=== PATIENT | male | born 1990 | race African-American/Black ===

== ENCOUNTER 2024-03-08 11:12 | Emergency (ER) | payer MEDICAID, SELFPAY ==
--- NOTE | ~2024-03-08 | XR_ITS ---
EXAMINATION: XR CHEST 2 VIEWS CLINICAL INFORMATION: Cough. COMPARISON: None. TECHNIQUE: Frontal and lateral views of the chest were obtained. FINDINGS: The heart, great vessels, pulmonary vasculature and mediastinum are normal. The lungs show no focal infiltrate, effusion or pneumothorax. There is no acute osseous abnormality. XR/XR chest 2V IMPRESSION: No active cardiopulmonary disease. Electronically signed by: Félix Chowdhury MD 03/08/2024 02:08 PM [facility]
[2024-03-08 11:32] VITALS: BP 132/78; PULSE 94; RESP 18; TEMP 37.5; O2SAT 96; BMI 35.6
--- NOTE | 2024-03-08 11:32 | ED_ITS ---
HPI - Nausea/Vomiting/Diarrhea General Chief complaint: Nausea/Vomiting/Diarrhea Stated complaint: n/v/d, muscle spasm Time Seen by Provider: 03/08/24 17:47 Source: patient Limitations: no limitations History of Present Illness ED Provider: Melida Otero PA-C HPI Narrative: 33-year-old otherwise healthy male presents with nausea vomiting diarrhea x3 days. Patient's children are sick at home with same symptoms. Associated abdominal cramping. Denies fever or cough cold symptoms. Associated nausea: Yes Related Data Previous Rx's ?Medication ?Instructions ?Recorded dicyclomine 20 mg tablet 20 mg PO BID PRN abdominal pain #7 03/08/24 tabs ondansetron 4 mg disintegrating 4 mg PO Q8H PRN nausea and 03/08/24 tablet vomiting #10 tabs Allergies Allergy/AdvReac Type Severity Reaction Status Date / Time No Known Allergies Allergy Verified 03/08/24 11:36 Review of Systems 2 Review of Systems: Yes all other systems are reviewed and are negative Constitutional: Constitutional: Denies fatigue and Denies fever(s) Cardiovascular: Cardiovascular: Denies chest pain and Denies dyspnea Respiratory: Respiratory: Denies cough and Denies dyspnea Gastrointestinal: Gastrointestinal: Reports diarrhea, Reports nausea and Reports vomiting Endocrine: Endocrine: Denies fatigue PMFSH Past Medical History Attestation statement: The following information was validated with the patient. Social History Social History Smoked in Last 30 Days: No Substance Use Type: Marijuana Substance Use Frequency: Socially Advance Directives: No Advance Directives Information Provided: No Physical Exam 2 Vital Signs: Vital Signs: Last Vital Signs Temp 98.3 F 03/08/24 18:40 Pulse 87 03/08/24 18:40 Resp 16 03/08/24 18:40 BP 119/69 03/08/24 18:40 Pulse Ox 97 03/08/24 18:40 O2 Del Method Room Air 03/08/24 18:40 BMI result Body Mass Index 35.6 Const: Other: Alert, well-appearing Orientation/consciousness: patient oriented x3 Resp: Other: Nonlabored respirations Cardio: Other: Normal peripheral perfusion GI: Other: Abdomen is soft, nondistended nontender Skin: Other: Warm dry no rash Neuro: General: patient oriented x3, no focal motor deficits and CN's II-XI intact bilaterally Psych: Other: Calm cooperative Course Course Course Narrative: This is an RME: Additional HPI, ROS, PE not included below will be deferred to primary provider. RME assessment and note performed by: Maida Dalton PA-C This is a 58-jwum-key-male, with no known medical problems, who presents to the ER with complaints of nausea, vomiting, diarrhea, headaches, x 1 day. Reports that he has had a cough for the last 3 days. Also endorses left sided chest tightness with coughing and sneezing. Endorses sick contacts. Plan: Labs, Viral swabs, EKG, cxr, further ER eval needed. Medications Administered Discontinued Medications Generic Name Dose Route Start Last Admin Trade Name Freq PRN Reason Stop Dose Admin Dicyclomine HCl 20 mg 03/08/24 17:48 03/08/24 18:08 Dicyclomine Hcl 10 Mg Capsule PO 03/08/24 17:49 20 mg ONCE ONE Administration Sodium Chloride 1,000 mls @ 999 mls/hr 03/08/24 18:00 03/08/24 18:17 Ns IV 03/08/24 19:00 999 mls/hr .Q1H1M JOE Administration Ketorolac Tromethamine 15 mg 03/08/24 18:25 03/08/24 18:41 Ketorolac Tromethamine 15 Mg/Ml Vial IVPUSH 03/08/24 18:26 15 mg ONCE ONE Administration Ondansetron HCl 4 mg 03/08/24 17:48 03/08/24 18:16 Ondansetron Hcl 4 Mg/2 Ml Vial IVPUSH 03/08/24 17:49 4 mg ONCE ONE Administration Medical Decision Making Medical Decision Making MDM Narrative: 33-year-old otherwise healthy male presents with nausea vomiting diarrhea x3 days. Patient's children are sick at home with same symptoms. Associated abdominal cramping. Denies fever or cough cold symptoms. No relevant chronic issues History: Per patient I have considered the following differential diagnoses: Viral gastroenteritis, diverticulitis, traveler's diarrhea, C diff Plan: Patient has viral gastroenteritis, his children are sick with same symptoms. We will give symptomatic care, IV fluid dicyclomine and Zofran. No recent travel this is not traveler's diarrhea, he has no risk factors for C diff. thought about diverticulitis, however there was no focal left lower quadrant discomfort on exam, imaging not warranted. Screening labs were already obtained from triage I have independently reviewed the following tests: Labs: No leukocytosis, not anemic, no electrolyte abnormality, viral panel negative Lab Data 03/08/24 11:49 03/08/24 11:49 Labs: Lab Results 03/08/24 03/08/24 Range/Units 11:49 19:32 WBC 8.1 (4.8-10.8) X10*3/uL RBC 5.23 (4.60-5.80) X10*6/uL Hgb 16.1 (14.0-18.0) g/dl Hct 45.7 (42.0-52.0) % MCV 87.4 (80.0-98.0) fL MCH 30.8 (27.0-33.0) pg MCHC 35.2 (31.0-36.0) g/dl RDW 13.4 (11.0-16.0) % Plt Count 219 (160-400) X10*3/uL MPV 9.2 L (9.4-12.4) fL Immature Gran % (Auto) 0.2 (0.0-0.4) % Neut % (Auto) 75.9 H (45-73) % Lymph % (Auto) 12.6 L (20-40) % [place] % (Auto) 8.1 (2-11) % Eos % (Auto) 2.8 (0-4) % Baso % (Auto) 0.4 (0-2) % Lymph # (Auto) 1.0 L (1.2-4.9) X10*3/uL [place] # (Auto) 0.7 (0.1-1.2) X10*3/uL Eos # (Auto) 0.2 (0.0-0.4) X10*3/uL Baso # (Auto) 0.0 (0.0-0.2) X10*3/uL Abs Immat Gran (auto) 0.02 (0.00-0.03) X10*3/uL Absolute Neuts (auto) 6.1 (2.0-8.3) x10*3/uL Absolute Nucleated RBC 0.000 (0.0-0.012) X10*3/uL Nucleated RBC % (auto) 0.0 (0.0-0.2) /100WBC Sodium 139 (135-145) mmol/L Potassium 4.1 (3.3-5.1) mmol/L Chloride 106 (96-108) mmol/L Carbon Dioxide 21 L (22-29) mmol/L Anion Gap 16 (12-20) BUN 8 L (9-16) mg/dL Creatinine 0.85 (0.5-1.4) mg/dL Estim Creat Clear Calc 138.8 Estimated GFR > 60 Random Glucose 91 (60-115) mg/dL Calcium 9.7 (8.4-10.2) mg/dL Magnesium 1.8 (1.6-2.6) mg/dL Total Bilirubin 0.5 (0.0-1.0) mg/dL AST 39 H (5-37) U/L ALT 43 H (0-40) U/L Alkaline Phosphatase 76 (39-117) U/L Troponin I High Sens < 2.7 (<3.5-35.0) ng/L Total Protein 7.7 (6.5-8.0) g/dL Albumin 4.3 (3.5-5.0) g/dL Lipase 11 (8-78) U/L Urine Color Yellow Urine Appearance Clear Urine pH 7.0 (5.0-9.0) Ur Specific [place] 1.015 (1.005-1.025) Urine Protein Trace (Neg-Trace) mg/dL Urine Glucose (UA) Negative (Negative) mg/dL Urine Ketones Negative (Negative) mg/dL Urine Blood Trace H (Negative) Urine Nitrite Negative (Negative) Ur Leukocyte Esterase Negative (Negative) Urine RBC 3-5 H (0-2) /HPF Urine WBC 0-5 (0-5) /HPF Ur Squamous Epith Cells 0-2 (0-2) /HPF Urine Bacteria None Seen (None Seen) Hyaline Casts 0-2 (0-2) /LPF Influenza Type A (PCR) NEGATIVE (Negative) Influenza Type B (PCR) NEGATIVE (Negative) RSV RNA Qual (PCR) NEGATIVE (Negative) SARS-CoV-2 RNA (RT-PCR) NEGATIVE (Negative) Discharge Plan Discharge Clinical Impression: Gastroenteritis Patient Disposition: Home, Self-Care Instructions: Gastroenteritis (ED) Additional Instructions: All of your screening labs were normal. You have viral gastroenteritis. See home care instructions. This illness is self-limiting. Uses Zofran as needed for nausea, use the dicyclomine as needed for abdominal cramping or diarrhea. Follow up with your primary care provider as needed. Prescriptions: New ondansetron 4 mg tablet,disintegrating 4 mg PO Q8H PRN (Reason: nausea and vomiting) Qty: 10 0RF dicyclomine 20 mg tablet 20 mg PO BID PRN (Reason: abdominal pain) Qty: 7 0RF Stand Alone Forms: Work/School Release Print Language: Armenian
--- NOTE | 2024-03-08 11:36 | ECG_ITS ---
Test Reason : CP Blood Pressure : / mmHG Vent. Rate : 094 BPM Atrial Rate : 094 BPM P-R Int : 132 ms QRS Dur : 080 ms QT Int : 326 ms P-R-T Axes : 023 024 011 degrees QTc Int : 407 ms Normal sinus rhythm Normal ECG No previous ECGs available Referred By: Maida Dalton Electronically Signed By:Kris Dominguez
[2024-03-08 11:59] LABS: MANUAL DIFF FLAG NO
[2024-03-08 12:01] LABS: Basophils Percent Auto 0.4 % (0-2); Eosinophils Absolute Auto 0.2 X10*3/uL (0.0-0.4); Eosinophils Percent Auto 2.8 % (0-4); Hematocrit 45.7 % (42.0-52.0); Hemoglobin 16.1 g/dl (14.0-18.0); Imm Gran Abs Auto 0.02 X10*3/uL (0.00-0.03); Imm Gran Pct Auto 0.2 % (0.0-0.4); Lymphocytes Percent Auto 12.6 % (20-40); Mean Corpuscular HGB Conc 35.2 g/dl (31.0-36.0); Mean Corpuscular Hemoglobin 30.8 pg (27.0-33.0); Mean Corpuscular Volume 87.4 fL (80.0-98.0); Mean Platelet Volume 9.2 fL (9.4-12.4); Monocytes Absolute Auto 0.7 X10*3/uL (0.1-1.2); Monocytes Percent Auto 8.1 % (2-11); Neutrophils Absolute Auto 6.1 x10*3/uL (2.0-8.3); Neutrophils Percent Auto 75.9 % (45-73); Platelet Count 219 X10*3/uL (160-400); Red Blood Count 5.23 X10*6/uL (4.60-5.80); Red Cell Distribution Width 13.4 % (11.0-16.0); White Blood Count 8.1 X10*3/uL (4.8-10.8)
[2024-03-08 12:35] LABS: Alanine Aminotransferase 43 U/L (0-40); Albumin Level 4.3 g/dL (3.5-5.0); Anion Gap 16 (12-20); Aspartate Amino Transferase 39 U/L (5-37); Bilirubin Total 0.5 mg/dL (0.0-1.0); Blood Urea Nitrogen 8 mg/dL (9-16); Calcium 9.7 mg/dL (8.4-10.2); Carbon Dioxide 21 mmol/L (22-29); Chloride 106 mmol/L (96-108); Creatinine Clr Calc Pharmacy 138.8; Estimated Glomerular Filt Rate > 60; Glucose Random 91 mg/dL (60-115); Lipase 11 U/L (8-78); Magnesium 1.8 mg/dL (1.6-2.6); Potassium 4.1 mmol/L (3.3-5.1); Sodium 139 mmol/L (135-145); Total Protein 7.7 g/dL (6.5-8.0); Troponin-I High Sensitivity < 2.7 ng/L (<3.5-35.0)
[2024-03-08 12:48] LABS: Influenza A PCR NEGATIVE (Negative); Influenza B PCR NEGATIVE (Negative); Resp Syncy Virus RNA Qual PCR NEGATIVE (Negative); SARS COV2 PCR INHOUSE NEGATIVE (Negative)
[2024-03-08 13:58] LABS: Alkaline Phosphatase 76 U/L (39-117)
[2024-03-08] MEDS: Dicyclomine HCl 10 MG CAPSULE 20 MG PO (18:08)
[2024-03-08] MEDS: ondansetron HCL 4 MG/2 ML VIAL IVPUSH (18:16)
[2024-03-08] MEDS: 0.9 % Sodium Chloride 1,000 ML 999 ML IV (18:17)
[2024-03-08 18:40] VITALS: BP 119/69; PULSE 87; RESP 16; TEMP 36.8; O2SAT 97
[2024-03-08] MEDS: Ketorolac Tromethamine 15 MG/ML VIAL IVPUSH (18:41)
[2024-03-08 19:43] LABS: Appearance Urine Clear; Color Urine Yellow; Glucose Urine UA Negative (Negative); Leukocyte Esterase Urine Negative (Negative); Nitrite Urine Negative (Negative); Specific Gravity - Urine 1.015 (1.005-1.025); UMIC TRIGGER UACC YES; Urine Blood Trace (Negative); Urine Ketones Negative (Negative); Urine Protein Trace mg/dL (Neg-Trace)
[2024-03-08 19:48] LABS: Bacteria Urine None Seen (None Seen); Hyaline Casts Urine 0-2 /LPF (0-2); Squamous Epithelial Cell Urine 0-2 /HPF (0-2); WBC Urine 0-5 /HPF (0-5)
[2024-03-08 21:00] VITALS: BP 127/78; PULSE 74; RESP 16; TEMP 37.3; O2SAT 95
== END 2024-03-08 21:01 | disposition home or self-care (01) ==
PROVIDERS: Physician Assistant Medical; Emergency Provider Internal Medicine
DX: K52.9 Noninfective gastroenteritis and colitis, unspecified (principal); R11.2 Nausea with vomiting, unspecified; Z03.818 Encounter for observation for suspected exposure to other biological agents ruled out; R05.9 Cough, unspecified
CPT/HCPCS: 0241U; 71046; 80053; 81001; 83690; 83735; 84484; 85025; 93005; 96361; 96374; 96375; 99284; 99285; J1885; J2405

== ENCOUNTER → 2024-03-08 11:36 | Outpatient (BNV) | payer MEDICAID, SELFPAY | PROVIDERS: Emergency Provider Internal Medicine; Visit Provider Internal Medicine Cardiovascular Disease | DX: R07.9 Chest pain, unspecified (principal) | CPT/HCPCS: 93010 ==